=== PATIENT | male | born 1975 | race Caucasian/White ===

== ENCOUNTER 2020-11-11 17:13 | Emergency (ER) | payer OTHER ==
[~2020-11-11] VITALS: Ht 170.2 cm; Wt 68.0 kg
[~2020-11-11 17:13] MED LIST: FLOMAX0.4 MG PO; NOHOMEMEDICATIONS; NORCO 5-325 TA1 EACH PO; ZOFRAN4 MG PO
[2020-11-11 18:18] VITALS: BP 131/91
[2020-11-11] MEDS ORDERED: ZPAK PO (19:59)
[2020-11-11] MEDS ORDERED: VENTOLIN HFA 1818 GM INH (19:59)
== END 2020-11-11 20:16 | disposition home or self-care (01) ==
LOC: M.ERS 17:13
DX: J18.9 Pneumonia, unspecified organism (principal); Z88.0 Allergy status to penicillin